=== PATIENT | female | born 1955 | race Caucasian/White ===

== ENCOUNTER 2020-04-06 10:00 | Outpatient (RCR) | payer OTHER, SELFPAY ==
--- NOTE | 2020-02-24 15:30 | SOAP_ITS ---
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 The Patient details a rather marked right sided paralysis with accompanying marked dysarthria, right sided otalgia occurring weeks prior to paralysis, marked disturbances in balance / vertigo, otalgia, and right intraoral hypoesthesia. At the time of assessment, her right facial asymmetries have vastly improved, with full functioning forehead mobility and mild right facial motor disturbances, with her intraoral hypoesthesia resolving, and no functional dysarthria present. The Patient denies any current issues associated with dysphagia, to include post prandial coughing / throat clearing, pocketing of bolus (right sided), sensations of bolus stasis, or nasopharyngeal reflux. 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 She appears cognitively intact, is very pleasant and conversant with an appropriate affect. The Patient is ambulatory, though was noted to lose balance on several occasions while ambulating to and from the therapy room with this clinician. She demonstrates no difficulties with posture maintenance. She appears sufficiently nourished (albeit thin), and does report prior fluctuations in weight that was attributed to the diagnosis of Crohn?s disease. 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 MEDICAL HISTORY: Crohn?s disease, Edgar-Mills syndrome. PREVIOUS MODIFIED BARIUM SWALLOW STUDY: None ADDITIONAL OBJECTIVE ASSESSMENT RESULTS: None available; reports recent MRI / CT was negative for any cerebrovascular abnormalities during recent stroke workup. RESULTS OF THE EVALUATION: The Patient presents with communication abilities found to be grossly within functional limits. SUPPLEMENTARY COMMUNICATION ASSESSMENT RESULTS: HOUSE BRACKMANN SCALE FOR FACIAL PARALYSIS GROSS FUNCTION ? GENERAL: grade II (slight dysfunction) DESCRIPTION: slight weakness noticeable on close inspection; GROSS FUNCTION ? AT REST: grade II (slight dysfunction) DESCRIPTION: normal symmetry and tone MOTION FUNCTION ? FOREHEAD: grade I (normal) DESCRIPTION: normal MOTION FUNCTION ? EYES: grade I (normal) DESCRIPTION: normal MOTION FUNCTION ? MOUTH: grade II (slight dysfunction) DESCRIPTION: slight asymmetry COMMUNICATION ASSESSMENT RESULTS (QUALITATIVE): LANGUAGE FUNCTIONING: no clinically significant language based abnormalities appreciated throughout the assessment; no significant impact on communication sufficiency was identified throughout our session, with the only occurrence of message disruption associated with her use of a cloth mask while conversing and walking to the therapy room, with the Patient also notably unbalanced, crossing her legs while ambulating, which likely did not have a positive impact on her communication sufficiency at the time; the Patient reports that her current level of functioning is indicative of her communication level for > 1 week, and does not feel as though further investigation is warranted at this time. VOCAL FUNCTIONING: no clinically significant vocal abnormalities observed COMMUNICATION ASSESSMENT RESULTS (SEVERITY GRADING): FUNCTIONAL COMMUNICATION MEASURE (FCM) ?LANGUAGE PRODUCTION FCM ? LANGUAGE PRODUCTION: 0 (independent) SEVERITY: independent LEVEL DESCRIPTION: language production is appropriate for age in all contexts. FUNCTIONAL COMMUNICATION MEASURE (FCM) ? ARTICULATION FCM ? ARTICULATION LEVEL: 0 (independent) SEVERITY: independent LEVEL DESCRIPTION: production of speech is normal in all contexts FUNCTIONAL COMMUNICATION MEASURE (FCM) ?VOICE PRODUCTION FCM ? VOICE PRODUCTION: 0 (independent) SEVERITY: independent LEVEL DESCRIPTION: voice is normal in all situations and contexts. INTERVENTION CONSIDERATIONS AND RECOMMENDATIONS: No further skilled speech-language intervention is warranted at the current time targeting dysarthria. POST ASSESSMENT EDUCATION: The results and recommendations were discussed with the Patient immediately following completion of the assessment, with the Patient verbalizing understanding and agreement with all recommendations and education provided. I discussed additional complicating factors that may accompany the diagnosis of Edgar-Mlils syndrome, most importantly dysphagia, though the Patient does not report any symptomology that would suggest dysphagia at the current time, and as with her communication abilities she does not wish to advance with further assessment at this time, which is appropriate given her presentation. We discussed that if a need for further workup with more sensitive measures was desired by the Patient, that I would be glad to further assist her in any fashion Abel Walter M.A., CCC-MANAGER COMMUNITY DEVELOPMENT, CBIS MBSImP Certified, LSVT Certified [facility] Speech-Language Pathology Department Email: [email or web address]
--- NOTE | 2020-02-24 17:11 | HP.PTEVAL ---
Patient's Visit Information RUPESH GREGORY is a 64 year old F referred to Physical Therapy by Dr. Daniel Castellanos MD with a diagnosis of Edgar Mills Syndrome. Date of Evaluation: 02/24/20 Physical Therapist: RENETTA RodriguezT, OCS, CSCS - Visit Plan Frequency: 2x /Week Duration: 4-6 Weeks Plan: 2x/week for 4 weeks for. 1. progression of home adaptation and habituation ex(currently VOR horiz and head nods and turns). 2. Integrate head movements with baalnce exercises adn gait as able. 3. Balance on foam - Subjective Edgar Mills 3 weeks ago. Went to ER due to earache. Eye would not shut adn side of face drooped. Catscan at ER was negative. Could not shut eye for 8 days. Speech was bad and is good now. No facial droop last. Balance is horrible. All the time feels unsteady. Fell a few times bending over to get something and kept going. Cannot drive due to this. Riding on hills is nauseous. Dizzy but no spinning. More unsteady than anything. Sitting is OK. Lying is OK. On feet is problem. Has lots of steps and needs rail. No cane or walker needed. 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 Basic aDLs are getting done and hygiene is OK but has to hold on. Unsteady in shower when puts head back. Hobbies include outdoors gardening and planting, bautista, and has not been able to do those things. Fell in yard again bending over. Grandbabies are 7,5,14 months - Pain ear Pain Intensity (Out of 10): 6 Comment: intermittent shooting. - Objective Posture is stiff in necka dn forward head, avoids moving head. Unsteady when does if standing. cervical AROM WFL in sitting.UE AROM WFL. Balance is Ok for the most part unless head is moving, VOR walking is a challenge. - B hallpike victorina adn roll test. Oculomotor: no nystagmus with head shake or gaze. - skew eye deviation and - ocular tilt. convergence is slow. Pursuit and saccades are not a problem today. - head thrust. VOR is 7/10 dizzy horizontal after 30 seconds for 10 seconds Vertical not as bad. - Balance Scores Functional Gait Assessment Score: 22 % Disability: 26.6700 CATSIB Score (Max score 120 seconds): 63 - Goals Goal 1:: Patient able to do VOR walking without dizzyness safely Goal Time Frame: 4-6 Weeks Goal 2:: FGA28 /30 to minimize fall risk Goal Time Frame: 4-6 Weeks Goal 3:: Pt feel 90% back to normal with activities and able to watch and carry grandchild. Goal Time Frame: 4-6 Weeks Goal 4:: DHI score of 4 or less Goal Time Frame: 4-6 Weeks - Rehabilitation Potential Physical Therapy Diagnosis: Vestibualr deficits from [facility] Rehabilitation Potential: Good - Anticipated Interventions Patient/Client Instruction: Educate patient on: Condition, Plan of Care For the Purpose of:: To increase tolerance to activity/condition/position, To improve gait and locomotor functions Therapeutic Exercise to Include: Balance training, Neuromotor development Comment: habituationa dn adaptation ex For the Purpose of:: To increase tolerance to activity/condition/position, To improve ability of physical actions for home/community/work/leisure, To improve gait and locomotor functions, To improve safety Thank you for the opportunity to evaluate your patient. For Medicare and Medicare HMO plans, please review the plan of care and approve it. It will need to be FAXED BACK to us at [phone] for Medicare purposes. For Medicare only, by signing this I certify the plan of care. Please let me know if there are questions or concerns regarding this plan of care. Physician Signature: Date:
--- NOTE | 2020-03-23 13:21 | HP.PTREVAL ---
Dr. Daniel Castellanos MD, It has been my pleasure to treat RUPESH GREGORY over the last 8 visits for Edgar Mills Syndrome. Please see the progress note below for an update on the physical therapy plan of care! Subjective: Alot better. I can walk now. Has worked in garden a little bit but fell bending over 1x adn did not get injured. Walking is Ok, steps are OK. No dizzyness lately . Maybe if she moves side to side quick. still not driving as she does nto feel comfortable. Objective/Function: VOR walkign much better and safe. fGA is perfect today. No dizzyness. Plan Plan: f/u two weeks to ensure baalcne good, check driving adn bending and recovering since she had a subjective problem adn likely d/c. Fox ee doctor next week. Goals Goal 1:: Patient able to do VOR walking without dizzyness safely Goal Time Frame: 4-6 Weeks Goal Progress: Goal Met Goal 2:: FGA28 /30 to minimize fall risk Goal Time Frame: 4-6 Weeks Goal Progress: Goal Met Goal 3:: Pt feel 90% back to normal with activities and able to watch and carry grandchild. Goal Time Frame: 4-6 Weeks Goal Progress: Progressing Goal 4:: DHI score of 4 or less Goal Time Frame: 4-6 Weeks Goal Progress: Progressing Anticipated Interventions Patient/Client Instruction: Educate patient on: Condition, Plan of Care For the Purpose of:: To increase tolerance to activity/condition/position, To improve gait and locomotor functions Therapeutic Exercise to Include: Balance training, Neuromotor development Comment: habituationa dn adaptation ex For the Purpose of:: To increase tolerance to activity/condition/position, To improve ability of physical actions for home/community/work/leisure, To improve gait and locomotor functions, To improve safety Please do not hesitate to contact me at [phone] by phone or if you have questions or concerns regarding this new plan of care! Sincerely, Joel Tian, DPT, OCS, CSCS
--- NOTE | 2020-04-06 10:26 | HP.PTDCSUM ---
It has been my pleasure to treat RUPESH GREGORY referred by Dr. Daniel Castellanos MD, with the diagnosis of Edgar Mills Syndrome for a total of 9 visit(s). Discharge Date: 04/06/20 Please see the following information for a summary of their discharge status. Subjective: No dizzyness or CODY. Balance is much better. No falls . Activities are normal. Dr. Castellanos was happy and she started driving. Bending over in garden is much better adn not a problem. Been doing exercise of bending without a problem ear Pain Intensity (Out of 10): 0 % Improvement: 95 Objective/Function: FGA perfect again. Foam EC stance stilla challenge. VOR walking without incident and good balance. Bending adn touching floor 5x without an issue and no problems with this as HEP. Goal 1:: Patient able to do VOR walking without dizzyness safely Goal Progress: Goal Met Goal 2:: FGA28 /30 to minimize fall risk Goal Progress: Goal Met Goal 3:: Pt feel 90% back to normal with activities and able to watch and carry grandchild. Goal Progress: Goal Met Goal 4:: DHI score of 4 or less Goal Progress: Goal Met Plan: d/c Discharge Comments: Pt to contact doctor if symptoms return which would be unexpected. If there are questions or concerns regarding this patient's physical therapy, please feel free to call me at [phone]. Thank you for the referral of this patient. Sincerely, Joel Tian, DPT, OCS, CSCS
== END 2020-04-06 19:00 | disposition home or self-care (01) ==
LOC: PT 10:00
PROVIDERS: PCP Family Medicine; Referring Provider Otolaryngology; Visit Provider Otolaryngology
DX: B02.21 Postherpetic geniculate ganglionitis (principal)
CPT/HCPCS: 92523; 97110; 97162; 97164; 97530

== ENCOUNTER → 2025-02-18 | Outpatient (CLI) | payer MEDICARE, SELFPAY | END | disposition home or self-care (01) | PROVIDERS: PCP Family Medicine; Referring Provider Otolaryngology; Visit Provider Otolaryngology | DX: G44.52 New daily persistent headache (NDPH) (principal) ==

== ENCOUNTER → 2025-02-24 | Outpatient (CLI) | payer MEDICARE, SELFPAY ==
--- NOTE | 2025-02-24 13:05 | CT_ITS ---
PROCEDURE: BRAIN/HEAD WITHOUT CONTRAST 02/24/2025 REASON FOR EXAM: DAILY MORNING HEADACHES X3 TECHNIQUE: Head CT without intravenous contrast. Coronal and Sagittal reconstruction series were provided. One or more dose reduction techniques were used (e.g., Automated exposure control, adjustment of the mA and/or kV according to patient size, use of iterative reconstruction technique. COMPARISON: None FINDINGS: No evidence of acute intracranial hemorrhage, midline shift or mass effect. No definite CT evidence of acute territorial cortical infarction. No hydrocephalus. Cerebral volume is age-appropriate. Calvarium is intact. Paranasal sinuses and mastoid air cells are clear. CT/Brain/Head without Contrast IMPRESSION: No acute intracranial abnormality. Reading Location: [facility]
== END | disposition home or self-care (01) ==
LOC: CT 13:03
PROVIDERS: PCP Family Medicine; Referring Provider Otolaryngology; Visit Provider Otolaryngology
DX: G44.52 New daily persistent headache (NDPH) (principal)
CPT/HCPCS: 70450

== ENCOUNTER 2025-08-05 10:51 | Day surgery (SDC) | payer MEDICARE, SELFPAY ==
[2025-08-05] VITALS (9 sets, daily range): BP systolic 101–128; BP diastolic 52–77; PULSE 60–75; RESP 14–20; TEMP 36.7–37.1; O2SAT 96–100; BMI 14.4
[2025-08-05] MEDS: Lactated Ringers 1,000 ML 15 ML IV (11:30)
--- NOTE | 2025-08-05 11:46 | PRE.ANES_ITS ---
ASA Classification* ASA Classification ASA Classification: 3 Assessment & Plan Anesthesia* Anesthesia Assessment Anesthesia Assessment: Discussed sedation and/or anesthesia options, risks, benefits, and alternatives with patient/parents/legal guardian/POA. Questions invited. The patient/parents/legal guardian/POA seems to understand and agrees to proceed with anesthesia plan. Reviewed the physical assessment, medical history, allergy history and patient home medications list prior to surgery/procedure/anesthetic and documented any changes. Performed airway and anesthesia risk assessments. Anesthesia Type Anesthesia Type: MAC History Source History Obtained from:: Patient and Chart Anesthesia Focused Assessment* Temperature: 98.5 F Pulse Rate: 75 Blood Pressure: 125/77 Respiratory Rate: 16 Pulse Ox: 100 Oxygen Delivery Method: Room Air Airway Assessment Mouth opens: >3 cm Mallampati Score: III Teeth Condition: Dentures (Patient has full upper dentures. They will stay in.) and Missing (Patient is missing several teeth on the bottom. Remainder of the teeth are tight.) Neck Range of motion (ROM): Full ROM Labs Anesthesia Preop lab: CBC WBC, (4.4-11.0) 4.6 K/mm3 07/27/25, 13:16 RBC, (4.2-5.4) 3.50 M/mm3 L 07/27/25, 13:16 Hgb, (12.0-15.0) 10.1 g/dL L 07/27/25, 13:16 Hct, (37-47) 31.7 % L 07/27/25, 13:16 Plt Count, (150-450) 564 K/mm3 H 07/27/25, 13:16 CHEMISTRY Potassium, (3.3-5.1) 3.7 mmol/L 07/27/25, 13:16 Sodium, (133-145) 136 mmol/L 07/27/25, 13:16 Magnesium, (1.5-2.2) 1.8 mg/dL 07/27/25, 13:16 Phosphorus, (2.7-4.5) 2.5 mg/dL L 07/27/25, 13:16 BUN, (4-19) 13 mg/dL 07/27/25, 13:16 Creatinine, (0.70-1.20) 0.53 mg/dL L 07/27/25, 13:16 Glucose, (70-99) 189 mg/dL H 07/27/25, 13:16 COAG Pre-Assessment Diagnosis/Proposed Procedure Planned Operative Procedure(s): RIGHT POSS LEFT INTERNAL JUGULAR PORT Anesthesia History 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 When Was Last Pacemaker Check QUESTION #4 FULL TEXT: You/Your Family Experience fever (hyperthermia) with Anesthesia Last Oral Intake Last Oral intake: Last Oral Intake NPO since 23:30 08/05/25 11:26 Meds taken in AM with sips of No 08/05/25 11:26 water? Meds patient instructed to take am of surgery PONV PONV - lithographic proofer apprentice: PONV - lithographic proofer apprentice Female Yes 07/29/25 14:18 HX of Motion Sickness No 07/29/25 14:18 HX of N/V After Surgery No 07/29/25 14:18 Non-Smoker Yes 07/29/25 14:18 Duration of Surgery greater No 07/29/25 14:18 than 60 minutes Number of Risk Factors 2 07/29/25 14:18 PONV Score Moderate Risk 07/29/25 14:18 Height & Weight Height & Weight: Anesthesia: Height & Weight Height 5 ft 3 in 08/05/25 11:26 Weight: 37 kg 08/05/25 11:26 Body Mass Index (BMI) 14.4 08/05/25 11:26 Respiratory Assessment Respiratory Assessment - lithographic proofer apprentice: Respiratory Tract Infection Hx - lithographic proofer apprentice Hx Respiratory Tract Infection No 07/29/25 14:18 STOP Sleep Apnea STOP Sleep Apnea - lithographic proofer apprentice: STOP Sleep Apnea - lithographic proofer apprentice Hx Hypertension Yes: CONTROLLED WITH MEDS 07/29/25 14:18 Hx Sleep Apnea No 07/29/25 14:18 CPAP BIPAP Do you snore loudly (louder No 07/29/25 14:18 than talking or can be heard Do you often feel tired/ No 07/29/25 14:18 fatigued/ sleepy during daytime? Has anyone observed you stop No 07/29/25 14:18 breathing during sleep? STOP Results Negative 07/29/25 14:18 QUESTION #5 FULL TEXT : Do you snore loudly (louder than talking or can be heard through closed doors)? 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 Specify any problems Hx of Preganancy in last 3 No 07/29/25 14:18 Months Nurse Filling Out Transfusion DSCHRIBER 07/29/25 14:18 & Questions: Date: 07/29/25 07/29/25 14:18 Time: 14:21 07/29/25 14:18 Patient unable to answer at this time (ie. confused, unrespo /Reproduction History /Reproductive History - lithographic proofer apprentice: /Reproductive Hx- lithographic proofer apprentice Hx Now No 07/29/25 14:18 Gestational Age (in weeks): EDC: Hx Hx Para Hx Section SAB No 07/29/25 14:18 Does the father of the baby or his family experience fever w Father of the baby Malignant Hypertension history comment Active Medications Active Medications: Current Medications Generic Name Dose Route Start Last Admin Trade Name Freq PRN Reason Stop Dose Admin Lactated Ringer's 1,000 mls @ 15 mls/hr 08/05/25 11:15 08/05/25 11:30 IV 15 mls/hr .Q48H MILY Administration PFSH Medical History Encounter for education Wears glasses Wears dentures Post-menopausal Alcohol use History of steroid therapy Easy bruising Former smoker Shortness of breath on exertion Crohn disease Osteopenia Hypokalemia Low BMI Anxiety Hypertension Emphysema lung Lung cancer Home Medications Medication Instructions Recorded Last Taken Type amlodipine 5 mg tablet 5 mg PO QDAY 07/18/25 Unknow n History losartan 50 mg tablet 50 mg PO QDAY 07/18/25 Unkno wn History potassium chloride 20 mEq 40 meq PO DAILY 07/18/25 Unk nown History tablet,extended release (K-Tab) diphenhydramine HCl 25 mg tablet 50 mg (2 x 25 mg) PO QHS PRN 07/25/25 Unknown Rx allergic reaction #2 tabs alprazolam 0.5 mg tablet (Xanax) 0.5 mg PO Q6H PRN PRN anxiety 07/29/25 Unknown History duloxetine 30 mg capsule,delayed 30 mg PO DAILY Unknown History release (Cymbalta) oxycodone 5 mg tablet 10 mg PO Q4H PRN pain Unknown History lidocaine-prilocaine 2.5 %-2.5 % 1 applic topical ONCE PRN port 08/01/25 Unknown Rx topical cream access 30 days #30 grams ondansetron 8 mg disintegrating 8 mg PO Q8H PRN nausea and 08/01/25 Unknown Rx tablet vomiting #30 tabs Allergy/AdvReac Type Severity Reaction Status Date / Time Iodinated Contrast Media Allergy Unknown hives Verified 08/05/25 11:18 (contrast dye - iodinated) Family History Mother CVA (cerebral vascular accident) Father Aneurysm Lung disease Brother Heart disease Hypertension Cancer lung Surgical History History of cataract surgery History of partial colectomy Social History Smoking Status: Former smoker Tobacco: How many years used: 30 alcohol intake: current alcohol intake frequency: holidays/special occasions only Review of Systems (Anesthesia) ROS Narrative System reviewed and no additional complaints, except as documented.
--- NOTE | 2025-08-05 12:18 | PCM.HP.BLA ---
History and Physical Date of Admission: 08/05/25 Date of Service: 08/04/25 MR#: [id number] Acct: [id number] Name: RUPESH GREGORY Rep #: [id number] : [id number] Provider: Dr. Kris Dunaway MD Age/Sex: 70/F Location: [facility] Status: Signed Intake Vital Signs 08/01/2508:37 08/04/2515:12 Height 5 ft 3 in 5 ft 3 in Weight: 85 lb 1 oz 83 lb BMI 15.0 14.7 BP 86/56 L 101/61 Blood Pressure Location Rt brachial Rt brachial Position Sitting Sitting Respiration 18 18 Pulse 73 87 Pulse Source Monitor Monitor Temp 97.2 F L 97.5 F L Temp Source Temporal Pulse Oximetry (%) 97 98 Oxygen Delivery Method room air room air Intake Visit Reasons: PORT PLACEMENT Chief Complaint: port placement Accompanied by: Friend- Malka Is patient in pain?: No Allergies Iodinated Contrast Media (contrast dye - iodinated) Allergy (Unknown, Verified 08/04/25 15:13) hives Medications Medication Instructions Recorded Confirmed Type amlodipine 5 mg tablet 5 mg PO QDAY 07/18/25 08/04/25 History losartan 50 mg tablet 50 mg PO QDAY 07/18/25 08/04/25 History potassium chloride 20 mEq 40 meq PO DAILY 07/18/25 08/04/25 History tablet,extended release (K-Tab) diphenhydramine HCl 25 mg tablet 50 mg (2 x 25 mg) PO QHS PRN 07/25/25 08/04/25 Rx allergic reaction #2 tabs alprazolam 0.5 mg tablet (Xanax) 0.5 mg PO Q6H PRN PRN anxiety 07/29/25 08/04/25 History duloxetine 30 mg capsule,delayed 30 mg PO DAILY 07/29/25 08/04/25 History release (Cymbalta) oxycodone 5 mg tablet 10 mg PO Q4H PRN pain 07/29/25 08/04/25 History lidocaine-prilocaine 2.5 %-2.5 % 1 applic topical ONCE PRN port 08/01/25 08/04/25 Rx topical cream access 30 days #30 grams ondansetron 8 mg disintegrating 8 mg PO Q8H PRN nausea and 08/01/25 08/04/25 Rx tablet vomiting #30 tabs Have you fallen in the past year?: No PFSH Medical History Encounter for education Wears glasses Wears dentures Post-menopausal Alcohol use History of steroid therapy Easy bruising Former smoker Shortness of breath on exertion Crohn disease Osteopenia Hypokalemia Low BMI Anxiety Hypertension Emphysema lung Lung cancer Surgical History History of cataract surgery History of partial colectomy Family History Mother CVA (cerebral vascular accident) Father Aneurysm Lung disease Brother Heart disease Hypertension Cancer lung Social History Smoking Status: Former smoker Tobacco: How many years used: 30 alcohol intake: current alcohol intake frequency: holidays/special occasions only HPI HPI HPI: The patient is a 70-year-old female with Crohn's disease and recently diagnosed left lung cancer, presenting to discuss port placement. The patient reports that her lung cancer diagnosis was preceded by a diffuse rash and persistent, migraine-like headaches that ultimately in May, she developed chest pressure that she initially attributed to a cold. She denies hemoptysis. She reports weight loss, but notes this is difficult to attribute solely to her cancer given her 40-year history of Crohn's disease. She is actively working to improve her nutrition and has started adding protein supplements to her diet. She has never had a central line placed and denies any history of skin infections, including staph or MRSA. She has completed chemotherapy teaching and has already started treatment. She has a 30-year history of smoking approximately 1 pack per day, but has recently quit. ROS General General: No weight change, appetite, fatigue, colon cancer, breast cancer or weakness HEENT HEENT: Yes eye surgery; No difficulty swallowing, eye injury, swollen glands or hoarseness Endo Endocrine: No thyroid disease, diabetes mellitus, thyroid cancer, Hair loss, heat intolerance or cold intolerance Skin Skin: No rash or changing moles Musc Musculoskeletal: No back problems, arthritis, rheumatoid arthritis, gout or joint pain Cardio Cardiovascular: Yes high blood pressure; No murmur, pacemaker, heart disease, atrial fibrillation, heart attack, heart stent, palpitations, shortness of breath with exertion or chest pain Psych Psychiatric: Yes depression and anxiety; No hearing voices Resp Respiratory: No shortness of breath, No sleep apnea, No cough, No COPD, No asthma, Yes emphysema and No wheezing Gastro Gastrointestinal: Yes abdominal pain, No nausea or vomiting, Yes diarrhea, No constipation, No blood in stool, No acid reflux, No hemorrhoids, No ulcers, No gallbladder problem and No black,tarry stools Aly Hematologic: No blood thinners, No blood disorders, No bleeding, No anemia and No blood clots Neuro Neurologic: No numbness, No tingling and No weakness Exam Const General: cooperative and anxious Orientation: alert, awake and oriented x3 Neck Other: Slender, minimal soft tissue to upper chest, no other eruptions or concern for skin infection, no scar Assessment and Plan Assessment and Plan (1) Primary lung adenocarcinoma: Status: Acute Qualifiers: Laterality: left Qualified Code(s): C34.92 - Malignant neoplasm of unspecified part of left bronchus or lung Comment: - Newly diagnosed left lung cancer; reviewed CT scan from the showing both internal jugular veins are presently open - Discussed rationale for right-sided placement due to tumor location and vessel anatomy. - Right-sided port placement scheduled for tomorrow at 12:30 PM to facilitate chemotherapy administration. - Reviewed procedure steps, including sterile technique, tunneling, and closure with stitches and skin glue. - Emphasized importance of infection prevention and signs of infection to monitor for post-procedure. - Advised against use of port for non-essential purposes. - Instructed patient to take last dose of Percocet at 2:00 AM prior to procedure and to withhold further doses until after the procedure to avoid respiratory depression. - Provided education on procedure, risks, and post-procedure care; patient verbalized understanding. Plan: Port-A-Cath placement tomorrow to the OR right possible left internal jugular approach. I have examined the patient and the H&P has been reviewed. There are no clinical changes since date of exam. Alll questions answered from patient and family. Proceed for catheter insertion
[2025-08-05] MEDS: Lidocaine 1% (5 ml sdv) 5 ML Vial 4 ML IV (12:37)
[2025-08-05] MEDS: Cefazolin 1 GM/5 ML Vial 2 GM IV (12:40)
[2025-08-05] MEDS: Midazolam 2 MG/2 ML Syringe IV (12:43)
[2025-08-05] MEDS: Lactated Ringers 2,000 ML 2000 ML IV (13:15)
[2025-08-05] MEDS: Bupiv/Epi 0.25% 30 ML Vial (13:20)
--- NOTE | 2025-08-05 13:32 | PCM.OPRPT ---
Procedures Cardiovascular CF Procedures [id number]: [id number] Insert tunneled cv cath Operative Report (Standard) Operative Information Date of Procedure: 08/05/25 Pre-Operative Diagnosis: Left upper lobe lung cancer requiring durable venous access for administration of chemotherapy Post-Operative Diagnosis: Same Surgery/Procedure Performed: Ultrasound and fluoroscopic guided right internal jugular Port-A-Cath placement director of email marketing: No Type of Anesthesia: MAC/Supplemental RN Documented Start/Stop Times: Operation Date: 08/05/25 12:30 Case Time Into Pre-Op 08/05/25 11:00 Anesthesia Start 08/05/25 12:32 Into Room 08/05/25 12:32 Procedure Start 08/05/25 12:54 Procedure End 08/05/25 13:30 Anesthesia End 08/05/25 13:34 Out of Room 08/05/25 13:34 Into Recovery 08/05/25 13:35 Out of Recovery 08/05/25 14:08 Into Phase II Recovery 08/05/25 14:09 Out of Phase II 08/05/25 15:45 Procedure Start Time: 12:54 Procedure Stop Time: 13:30 Select all DRAINS/GRAFTS/IMPLANTS that apply: Implanted device (8 Divehi PowerPort ISP MRI implantable) Implanted device details: Reference [id number], Lot [id number] Estimated Blood Loss: 5 Specimen collected: No Description of surgery: After appropriate identification in the preoperative holding area the patient was brought to the operating room. There she was administered preoperative antibiotics and positioned supine on the operating room table. I confirmed patency of the right internal jugular vein using bedside ultrasound. Once sedation was begun, the upper chest and lower cervical region were prepped and draped in usual sterile fashion. A formal timeout was then conducted to confirm both the patient and procedure. Ultrasound was used to localize the right internal jugular vein. Then a wheal of 0.25% bupivacaine with epinephrine was raised superficially in this location and the vein was accessed with a single attempt under direct ultrasound guidance. Using a Seldinger technique a standard 035 kit–included guidewire was placed. The position of the guidewire was confirmed with fluoroscopy. Next the position of the port pocket was determined and again local anesthetic was used to anesthetize the area of both the pocket and the tunneling cephalad. A transverse incision approximately 3 cm in width was made down through the limited subcutaneous tissue. Selective electrocautery was used to obtain hemostasis. Then with blunt dissection the port pocket was developed. The catheter was connected to the tunneler and was tunneled up to the position of the guidewire. Here the dilator and peel-away sheath were placed over the guidewire and the guidewire was removed. Position was again confirmed with fluoroscopy. The catheter length was estimated based on the external placement of a hemostat to approximate the level of the jennifer and the cavoatrial junction. The catheter was then fed into the sheath and slowly the sheath was peeled away as the catheter was inserted fully into the neck. Back in the chest the excess catheter was trimmed and the port was connected to the catheter. The port was tied into the pocket using 3-0 Vicryl. Function was then tested using sterile saline on a Perez needle. It was locked with 3.0 mL of heparinized saline (concentration 50U/5mL). The port pocket was closed with a deep dermal stitch using a running 3-0 Vicryl followed by 4-0 Monocryl subcuticular stitch. The 5 mm incision in the neck was closed glued shut and Dermabond was applied as a dressing over the port pocket as well. Patient was then aroused from the sedation and taken to PACU for ongoing recovery were a portable chest x-ray was obtained to confirm port positioning and exclude any pneumothorax. Surgical Findings: Right internal jugular vein accessed under first attempt. Had to be mindful of dilated external jugular vein during tolerated Complications Complications: No Admit VTE Documentation VTE Mechan Device Prophylaxis: SCD's
--- NOTE | 2025-08-05 13:40 | PCM.POST.ANE ---
Anesthesia: Postop Eval I Current Vital Signs Temperature: 98.1 F Pulse Rate: 73 Blood Pressure: 101/52 Respiratory Rate: 20 Pulse Ox: 99 Oxygen Delivery Method: Room Air Assessment Airway patent: Yes Spontaneous unlabored respirations: Yes Mental status: Awake and Calm nausea: No Vomiting: No Anesthesia Complication: No Fluid Hydration Crystalloid volume administer (ml): 1,000 Total IV fluid infused: 1,000 Progress Note Anesthesia document: Postop Eval 1 completed: Yes
--- NOTE | 2025-08-05 13:50 | RAD_ITS ---
PROCEDURE: CXR FOR LINE PLACEMENT 08/05/2025 REASON FOR EXAM: STATUS POST LINE PLACEMENT TECHNIQUE: Procedure Code: [id number] Modality: DX Procedure: CXR FOR LINE PLACEMENT COMPARISON: Prior CT scan dated June 08, 2025. FINDINGS: A right-sided port a catheter is seen with the tip at the junction of the superior vena cava and right atrium. EKG electrodes are seen. There is a 10.2 cm by 9.8 cm mass in the left lung apex. The right lung is clear. RAD/CXR for Line Placement IMPRESSION: The tip of the right-sided port a catheter is at the junction of the superior v joseph cava and right atrium. Persistent right upper lobe mass. Reading Location: [place] [id number]
--- NOTE | 2025-08-05 14:22 | POSTOPAN2_ITS ---
Anesthesia Postop Eval I Sum Postop Eval Completion status Anesthesia document: Postop Eval 1 completed: Yes Anesthesia Postop Eval I Summary Anesthesia Postop Eval I Summary: Anesthesia Postop Eval I: Assessment Summary Airway patent Yes 08/05/25 13:41 COATER OPERATOR INSULATION [email or web address] Spontaneous unlabored Yes 08/05/25 13:41 COATER OPERATOR INSULATION BOARD.[email or web address] respirations Mental status Awake,Calm 08/05/25 13:41 COATER OPERATOR INSULATION [email or web address] nausea No 08/05/25 13:41 COATER OPERATOR INSULATION BOARD.[email or web address] Vomiting No 08/05/25 13:41 COATER OPERATOR INSULATION BOARD.[email or web address] Anesthesia Postop Eval I: Fluid Summary Crystalloid volume administer 1,000 08/05/25 13:41 COATER OPERATOR INSULATION [email or web address].[email or web address] (ml) Colloids volume administered ( ml) Blood Product volume administered (ml) Total IV fluid infused 1,000 08/05/25 13:41 COATER OPERATOR INSULATION [email or web address].[email or web address] Anesthesia Postop Eval I: Summary Notes Anesthesia Complication No 08/05/25 13:41 COATER OPERATOR INSULATION [email or web address].[email or web address] Anesthesia Complication Comment: Post-operative progress note Anesthesia: Postop Eval II Evaluation Mental status: Awake and Calm Pain Level: 1 nausea: No Vomiting: No
--- NOTE | 2025-08-05 14:22 | PCM.POSTANE2 ---
Anesthesia Postop Eval I Sum Postop Eval Completion status Anesthesia document: Postop Eval 1 completed: Yes Anesthesia Postop Eval I Summary Anesthesia Postop Eval I Summary: Anesthesia Postop Eval I: Assessment Summary Airway patent Yes 08/05/25 13:41 HELP DESK [email or web address] Spontaneous unlabored Yes 08/05/25 13:41 HELP DESK [email or web address].[email or web address] respirations Mental status Awake,Calm 08/05/25 13:41 HELP DESK [email or web address] nausea No 08/05/25 13:41 HELP DESK [email or web address].[email or web address] Vomiting No 08/05/25 13:41 HELP DESK CONSULTANT.[email or web address] Anesthesia Postop Eval I: Fluid Summary Crystalloid volume administer 1,000 08/05/25 13:41 HELP DESK [email or web address].[email or web address] (ml) Colloids volume administered ( ml) Blood Product volume administered (ml) Total IV fluid infused 1,000 08/05/25 13:41 HELP DESK [email or web address].[email or web address] Anesthesia Postop Eval I: Summary Notes Anesthesia Complication No 08/05/25 13:41 HELP DESK [email or web address] Anesthesia Complication Comment: Post-operative progress note Anesthesia: Postop Eval II Evaluation Mental status: Awake and Calm Pain Level: 1 nausea: No Vomiting: No
--- NOTE | 2025-08-05 15:03 | EX.PCM.DISCH ---
Discharge Instructions Diet Discharge Diet: No restrictions Activity Discharge Activity: May Shower May shower in (days): 1 Ice area for (Minutes): 20 Additional Activity Instructions:: Limit the activity by the nearest upper extremity for 48 hours postop Dressing / Incision Call your doctor if your incision/area has: Increased Pain/ Swelling, Increased Redness, Foul Smelling Discharge and Swelling at the incision site Call your doctor if you observe: Fever of 101 or Higher Remove Dressing in: do not remove dressing (Dermabond (surgical glue) expected to dissolve spontaneously within 7 to 10 days postop using regular showering) Cleanse incision/area with: Soap & Water Follow Up Care Test Results: Test results from this visit will be discussed in further detail at your follow-up appointment, if applicable. Discharge Plan Admission Primary Reason for Your Visit: Port placement Attending Provider: Kris Dunaway Primary Care Provider: Mayra Lackey Instructions Print Language: Mohawk Discharge Orders/Prescriptions Prescriptions: Continued diphenhydramine HCl 25 mg tablet 50 mg PO QHS PRN (Reason: allergic reaction) Qty: 2 0RF Rx Instructions: take 50 mg PO 1 hour prior to contrast administration losartan 50 mg tablet 50 mg PO QDAY amlodipine 5 mg tablet 5 mg PO QDAY potassium chloride [K-Tab] 20 mEq tablet extended release 40 meq PO DAILY ondansetron 8 mg tablet,disintegrating 8 mg PO Q8H PRN (Reason: nausea and vomiting) Qty: 30 1RF lidocaine-prilocaine 2.5-2.5 % cream 1 applic topical ONCE PRN (Reason: port access) 30 Days Qty: 30 2RF duloxetine [Cymbalta] 30 mg capsule,delayed release(DR/EC) 30 mg PO DAILY alprazolam [Xanax] 0.5 mg tablet 0.5 mg PO Q6H PRN PRN (Reason: anxiety) oxycodone 5 mg tablet 10 mg PO Q4H PRN (Reason: pain) Rx Instructions: take one tab PO q6 hrs prn pain Referrals / Follow Up: Mayra Lackey PA-C [Primary Care Provider, Medical] Disposition Disposition (needs filled in before D/C Order can be placed): Home, Self Care
== END 2025-08-05 15:45 | disposition home or self-care (01) ==
LOC: SDC 10:53 → AC 10:55
PROVIDERS: PCP Family Medicine; Referring Provider Surgery; Visit Provider Surgery
DX: Z45.2 Encounter for adjustment and management of vascular access device (principal); C34.92 Malignant neoplasm of unspecified part of left bronchus or lung; J43.9 Emphysema, unspecified; I10 Essential (primary) hypertension; Z79.899 Other long term (current) drug therapy; Z87.891 Personal history of nicotine dependence
CPT/HCPCS: 36561; 00532; 71045; 77001; C1894; C1788; J2405